=== PATIENT | male | born 2005 | race Caucasian/White ===

== ENCOUNTER 2024-06-30 05:11 | Emergency (ER) | payer OTHER, SELFPAY ==
[2024-06-30 05:14] VITALS: BP 140/63; PULSE 78; TEMP 37; O2SAT 100; BMI 33.4
--- NOTE | 2024-06-30 05:29 | XR_ITS ---
[facility] [id number] Patient Name: ALEJANDRINA BRADEN MRN: [id number] date: 2005 Sex: M Assigned Patient Location: ER Current Patient Location: ED.MAIN Accession/Order Number: [id number] Exam Date: 06/30/2024 05:38 Report Date: 06/30/2024 06:20 At the request of: LISA MARKER Procedure: XR hand RT min 3V EXAM: XR hand RT min 3V HISTORY: injury to thumb COMPARISON: None. TECHNIQUE: AP, oblique and lateral right hand x-rays. FINDINGS: There is an acute mildly comminuted and mildly displaced intra-articular fracture involving the base of the first metacarpal extending into the first CMC joint. No additional acute osseous injury is seen. There is a 5 mm smooth corticated bony fragment adjacent to the of the radial styloid suspicious for chronic avulsed fracture fragment. XR/XR hand RT min 3V IMPRESSION: Acute mildly comminuted and mildly displaced intra-articular fracture involving the base of the first metacarpal, with presumed chronic 5 mm avulsed fracture fragment adjacent to the tip of the radial styloid process. Correlation for focal tenderness recommended. No other potential acute right hand findings are seen. Electronically authenticated by: GARO VALENZUELA Date: 06/30/2024 06:20
--- NOTE | 2024-06-30 05:32 | ED_ITS ---
HPI HPI - Extremity Injury (Upper) General Chief Complaint: Extremity Injury, Upper Stated Complaint: [facility] HAND INJURY Time Seen by Provider: 06/30/24 05:14 Source: patient Mode of arrival: walk-in Limitations: no limitations History of Present Illness HPI narrative: This 18-year-old male who is right-hand dominant presents for evaluation of an injury to his right hand specifically the thenar eminence of the right hand. The patient works at [employer]. He was pulling tightly packed boxes out of a crate. The boxes that he was attempting to pull out were stuck in the crate because they were packed tightly and he was wiggling them and trying to get them out when they released and as he pulled his right hand back he hit his right hand on a metal railing. He has pain and swelling at the right thenar eminence. He denies any numbness or tingling. No additional injuries or complaints. Related Data Home Medications ?Medication ?Instructions ?Recorded ?Confirmed dexmethylphenidate 10 mg tablet 10 mg PO BID 06/30/24 06/30/24 (Focalin) Allergies Allergy/AdvReac Type Severity Reaction Status Date / Time No Known Drug Allergies Allergy Verified 06/30/24 05:18 Opioid HPI Opioid Management Most Recent Pain and Opioid Data: Last Pain Scale 7 06/30/24 05:50 06/30/24 Last ED Pain Assessment 06/30/24 05:22 Last MAR Pain Assessment 06/30/24 05:50 Review of Systems ROS Status of ROS 10 or more systems reviewed and unremark able except as noted in history and below [facility] Medical History (Updated 06/30/24 @ 06:20 by Dona Benavides MD) ADHD ?F90.9 - Attention-deficit hyperactivity disorder, unspecified type (ICD-10) Social History Little interest or pleasure in doing things: not at all Feeling down, depressed, or hopeless: not at all Exam Narrative Exam Narrative: Vital signs and Nursing Notes reviewed: Patient is afebrile with a normal pulse, blood pressure is mildly elevated 140/63, he is not hypoxic with pulse ox of 100% on room air General: Awake, alert, oriented, no acute distress, lying comfortably on the stretcher HEENT: Normocephalic atraumatic, mucous membranes are moist and pink, eyes are clear, normal conjunctiva, vision is grossly intact Chest: Lungs are clear to auscultation with good air entry, there is no wheezing rhonchi or rales appreciated no accessory muscle use, patient is speaking in complete sentences-no chest wall tenderness to palpation CVS: Regular rate and rhythm S1-S2, no murmurs rubs or gallops, pulses are brisk and equal bilaterally Extremities: There is mild to moderate swelling and tenderness to the right thenar eminence. There is no laceration or abrasion. Patient is able to approximate thumb and index long and ring finger but not the fifth finger due to swelling and discomfort. Capillary refill in the extremity is normal, sensation is normal. Skin: Normal in appearance without rash,pallor, petechiae or purpura Neuro: No focal deficits Constitutional Vital Signs, click to edit/add: Last Vital Signs Temp 98.6 F 06/30/24 05:14 Pulse 78 06/30/24 05:14 Resp 18 06/30/24 05:14 BP 140/63 06/30/24 05:14 Pulse Ox 100 06/30/24 05:14 O2 Del Method Room Air 06/30/24 05:14 Course Vital Signs Vital signs: Vital Signs Temperature 98.6 F 06/30/24 05:14 Pulse Rate 78 06/30/24 05:14 Respiratory Rate 18 06/30/24 05:14 Blood Pressure 140/63 06/30/24 05:14 Pulse Oximetry 100 06/30/24 05:14 Oxygen Delivery Method Room Air 06/30/24 05:14 Temperature 98.6 F 06/30/24 05:14 Pulse Rate 78 06/30/24 05:14 Respiratory Rate 18 06/30/24 05:14 Blood Pressure 140/63 06/30/24 05:14 Pulse Oximetry 100 06/30/24 05:14 Oxygen Delivery Method Room Air 06/30/24 05:14 MDM - Extremity Injury (Upper) MDM Narrative Medical decision making narrative: This 18-year-old male presents for evaluation of an injury to his right hand when he was trying to pull cardboard boxes out of a crate that were stuck in the crate and after they released his hand sprung backwards and struck a metal railing. He has some swelling to the thenar eminence of the right hand with tenderness in this area. He is otherwise neurovascularly intact. He was medicated with ibuprofen. X-ray of the right hand was ordered and shows a base of the thumb fracture. This was discussed with orthopedics on-call. He will see the patient in his office in follow-up. The patient was placed in a thumb spica splint. He declined the need for any other narcotic analgesics and will be given a prescription for ibuprofen 600 mg. Splint care was discussed with him and he was returned to [facility] for further evaluation by their Workmen's Comp./medical office. Discharge Plan Discharge Chief Complaint: Extremity Injury, Upper Clinical Impression: Fracture of thumb, right, closed Patient Disposition: Home, Self-Care Time of Disposition Decision: 06:19 Condition: Good Prescriptions / Home Meds: No Action dexmethylphenidate [Focalin] 10 mg tablet 10 mg PO BID Rx Instructions: administer doses at least 4 hours apart Print Language: Hong [place]er Instructions: Splint Care (ED), Thumb Fracture (ED) Referrals: Physician,Non-Staff, [Primary Care Provider] - 1 week Simon Porter MD [Physician] - As soon as possible (Base of thumb fx) Procedures ED Procedure Instructions Procedures Procedures: Procedure note: Fracture care without manipulation; a thumb spica splint was placed from the distal end of the thumb to the forearm over heavy packing. Patient tolerated procedure well. He is neurovascularly intact.
[2024-06-30] MEDS: IBUPROFEN 600 MG TABLET PO (05:50)
== END 2024-06-30 06:31 | disposition home or self-care (01) ==
PROVIDERS: Emergency Provider Emergency Medicine
DX: S62.501A Fracture of unspecified phalanx of right thumb, initial encounter for closed fracture (principal); W22.8XXA Striking against or struck by other objects, initial encounter
CPT/HCPCS: 73130; 99283